=== PATIENT | female | born 1960 | race Caucasian/White ===

== ENCOUNTER 2016-09-13 22:46 | Inpatient (IN) | payer OTHER ==
[~2016-09-13] VITALS: Ht 165.1 cm; Wt 79.0 kg
[2016-09-13 22:46] VITALS: BP 162/99; PULSE 94; RESP 16; O2SAT 98
--- NOTE | 2016-09-13 22:56 | ED.REPORT ---
HPI-Extremity Problem Lower Date of Service Sep 13, 2016 ED Provider: Dr. 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 Air splint in place on arrival. Neurovascular status intact distal to injury Nursing Notes Stated Complaint: RIGHT ANKLE DEFORMITY Chief Complaint: Extremity Trauma Nursing Notes Reviewed: Yes Allergies: Coded Allergies: No Known Allergies (Unverified , 09/13/16) Scheduled Melatonin (Melatonin 1 mg Tablet) 1 Each Tablet 1 MG PO HS Metoprolol Succinate ER (Metoprolol Succinate ER) 25 Mg Tab.er.24h 25 MG PO DAILY Pravastatin (Pravastatin) 20 Mg Tablet 20 MG PO DAILY Miscellaneous Medications Losartan Potassium (Losartan Potassium) 25 Mg Tablet 25 MG PO [place]-3 Fatty Acids (Fish Oil) 300 Mg Capsule 300 MG PO General Time Seen by MD: 22:55 Chief Complaint Leg injury right Hx Obtained From: Patient Arrived By: Ambulance Onset Occurred: Just prior to arrival Symptom Duration: Since onset Caused by: Accidental Location: : Ankle right Quality: Painful Severity: Current: Moderate Recent Healthcare: No recent doctor visit, No recent hospitalization Similar Sx Previous: No Past Medical History Past Medical History HTN Past Surgical History denies Smoking History Unknown if Ever Smoker Social History Other Social History: Good social support, Local resident Ambulatory Status Independent Review of Systems Musculoskeletal: Reports: Joint pain (right ankle ), Joint swelling (right ankle ) Neurologic: Denies: Change LOC, Headache, Numbness Complete sys rev & neg: except as marked. Physical Exam Initial Vital Signs Vital Signs (First) Date Time Temp Pulse Resp B/P Pulse Ox O2 Delivery O2 Flow Rate FiO2 09/13/16 22:46 36.8 94 16 162/99 98 Room Air Initial VS: Reviewed Lower Extremity / Pelvis / MS: Vascular intact Right Ankle: Positive: Deformity present, Swelling present..., Tenderness present... obvious deformity and bruising distal sensation and vascularity intact General/Constitutional: Awake, Alert, Cooperative Skin: Atraumatic, Warm, Dry Neurologic: Oriented X3, Speech NL Head / Eyes: Atraumatic, Normocephalic, PERRL, EOMI Back: Atraumatic, Inspection NL, Non-tender Upper Extremity / MS: Atraumatic, Inspection NL, No deformity Interpretation & Diagnostics Lab Results Interpretation Result Diagram: 09/14/16 0035 09/14/16 0035 Test 09/14/16 00:35 White Blood Count 9.0th/mm3 (3.8-10.1) Red Blood Count 4.40mil/mm3 (3.90-5.20) Hemoglobin 14.5g/dL (12.0-15.6) Hematocrit 43.1% (35.0-46.0) Mean Corpuscular Volume 98.0fL (81-100) Mean Corpuscular Hemoglobin 33.0pg (27.0-35.0) Mean Corpuscular Hemoglobin Concent 33.6% (32.0-37.0) Red Cell Distribution Width 13.2% (12.3-15.4) Platelet Count 261bil/L (150-400) Neutrophils (%) (Auto) 63.7% (40-74) Lymphocytes (%) (Auto) 29.5% (14-46) Monocytes (%) (Auto) 5.3% (4-12) Eosinophils (%) (Auto) 1.0% (0-5) Basophils (%) (Auto) 0.3% (0-3) Prothrombin Time 9.8sec (8.1-12.5) Prothromb Time International Ratio 0.92ratio Activated Partial Thromboplast Time 28.5sec (22.8-33.0) Sodium Level 138mEq/L (134-144) Potassium Level 3.9mEq/L (3.5-5.2) Chloride Level 101mEq/L (97-108) Carbon Dioxide Level 19mmol/L (18-29) Blood Urea Nitrogen 15mg/dL (6-24) Creatinine 0.70mg/dL (0.57-1.00) Estimat Glomerular Filtration Rate 124mL/min (>59) Glucose Level 104mg/dL (60-99) Calcium Level 8.9mg/dL (8.5-10.1) Magnesium Level 2.0mg/dL (1.6-2.6) Total Bilirubin < 0.2mg/dL (0.0-1.2) Aspartate Amino Transf (AST/SGOT) 17U/L (0-50) Alanine Aminotransferase (ALT/SGPT) 25U/L (0-32) Alkaline Phosphatase 85U/L (25-150) Total Protein 7.2g/dL (6.4-8.4) Albumin 4.5g/dL (3.4-5.0) Lipase 24U/L (13-60) Hold Lee Top Tube Received (Received) Alcohols 89mg/dL (0-10) ECG Interpretation Time: 23:50 Interpreted by: ED physician Rhythm / Conduction: Tachycardia (rate 100) Re-Eval/Medical Decision Med Decision/Clinical Course 56-year-old with hypertension presents with a laterally displaced ankle fracture bimalleolar. This is reduced into a stirrup and posterior splint. Distal neurovascular. Post are intact. She feels unable to manage with crutches at home. She will require operative management. Admitted now to the hospitalist service with consultation orthopedics. Nothing by mouth status. Re-Evaluation/Progress #1: Time of Eval: 23:32 Re-Evaluation/Progress Note: Pt rechecked. Informed pt of x-ray results and need for surgery. Plan for IV, pain medication and admission. Re-Evaluation/Progress #2: Time of Eval: 00:04 Re-Evaluation/Progress Note: Pt rechecked. Reset pt's ankle and applied splint. Consultation : Referral / Consult Name: Luisa Gordon DO Consulted With: Hospitalist Call Returned at: 01:25 Reducing Machine Operator: Agrees with eval, Agrees with plan, Accepts admit Note: Case discussed. Dr. Gordon accepts admit. Counseled Regarding: Diagnosis, Lab results, Need for admission Discharge & Departure Impression: Primary Impression: Ankle fracture Encounter type: initial encounter Fracture type: closed Laterality: right Qualified Code: S82.891A - Other fracture of right lower leg, initial encounter for closed fracture Disposition: ADMITTED TO HOSPITAL Discharge Condition All VS Reviewed: Yes Condition: Stable Referrals: [facility] Scribe Attestation Portion of this note were transcribed by Moni Finch. I, Dr. Thompson, personally performed the history, physical exam, and medical decision-making: I reviewed and confirmed the accuracy for the information in the transcribed note. Signed by: david Lora, 09/14/16 0030 copies to: [facility] Homero Thompson MD Sep 13, 2016 22:55 Moni Finch Sep 13, 2016 23:00
[2016-09-13] MEDS ORDERED: 0.9% Sodium Chloride 1,000 ML IV ONE (23:33)
[2016-09-13] MEDS ORDERED: Ondansetron 2 mg/mL 2 mL Inj IVPUSH ONE ×2 (23:35→23:45)
[2016-09-13] MEDS ORDERED: HYDROmorphone 1 mg/mL Inj IVPUSH PRN (23:35)
[2016-09-13] MEDS ORDERED: HYDROmorphone 1 mg/mL Inj IVPUSH ONE (23:45)
[2016-09-14] VITALS (12 sets, daily range): BP systolic 114–160; BP diastolic 66–98; PULSE 74–114; RESP 8–22; O2SAT 93–97
[2016-09-14 00:47] LABS: BASOPHILS % (AUTO) 0.3 % (0-3); MONOCYTES % (AUTO) 5.3 % (4-12); NEUTROPHILS % (AUTO) 63.7 % (40-74); Platelet Count 261 bil/L (150-400)
[2016-09-14 01:12] LABS: INR 0.92 ratio
[2016-09-14 01:18] LABS: Lipase 24 U/L (13-60)
[2016-09-14] MEDS ORDERED: Polyethylene Glycol (PEG) 17 Gm Powder PO PRN ×2 (01:30→04:35)
[2016-09-14] MEDS ORDERED: Alum-Mag Hydrox-Simeth 30 mL Suspension PO PRN (01:30)
[2016-09-14] MEDS ORDERED: Ondansetron 2 mg/mL 2 mL Inj IVPUSH PRN ×2 (01:30→13:15)
--- NOTE | 2016-09-14 01:32 | PCM.HPMED ---
Subjective Date of Service Sep 14, 2016 Primary Provider: Admitting Physician: Luisa Gordon DO Primary Care Physician: [place] Attending Physician: Luisa Gordon DO Admit Status: From the Emergency Department Chief Complaint: ankle pain History of Present Illness: 56yoF with past medical history of HTN admitted following rolling of ankle resulting in bimalleolar fracture. Patient states she was walking on her property when she stepped into a hole and twisted her ankle. As this occurred she describes hearing a popping sound and a sudden onset of pain. Her came to her aide and was able to get her to the front of the property in a wheel [place]. EMS was called and patient brought into [facility]. Imaging completed following presentation consistent with bimalleolar fx. Ortho was consulted with plans to admit and possibly take to OR 09/14. Review of Systems: complete review of systems obtained. 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 [employer] Hx Alcohol Use: Yes Hx Substance Use: No Smoking Status: Current Every Day Smoker (trying to quit), Unknown if Ever Smoker Living Arrangement: with Family Additional Information 2-3 drinks per day with no history of dependence Exam Vital Signs Vital Sign - Last Date Time Temp Pulse Resp B/P Pulse Ox O2 Delivery O2 Flow Rate FiO2 09/13/16 22:46 36.8 94 16 162/99 98 Room Air Intake and Output 09/13/16 09/13/16 09/14/16 Cumulative From/Thru 15:00 23:00 07:00 09/13/16 22:46 - 09/13/16 23:58 Intake Total 1000 ml 1000 ml Balance 1000 ml 1000 ml Intake IV Total 1000 ml 1000 ml Exam General: Alert, Oriented X3, Cooperative, No acute Distress Eyes: PERRLA, Scleral Anicteric Mouth: Mouth Normal, Mucous Membranes Moist/[place] Neck: Supple, no Thyromegaly, trachea central. Chest & Lungs: Clear to auscultation & percussion, No adventitious breath sounds, no crackles, no wheeze Cardiovascular: Normal S1, Normal S2, No Murmurs/Rubs/Gallops, Regular Rate/ Rhythm, (No JVD, no peripheral edema) Pulses: Radial (present and equal), Dorsalis Pedi (present and equal) Abdomen: Soft, non-tender, no rebound, Non-distended, hypoactive bowel tones. Musculoskeletal: Unremarkable. Normal range of motion, no swollen or erythematous joints Extremities: no edema, no cyanosis, no clubbing, lower extremity in splint Skin: No rashes. Warm and dry, no erythematous areas Neurological: Grossly neurologically intact, Normal Speech, Sensation Intact Lymphatic: Lymph nodes Cervical and Axillary not palpable Lab and Diagnostics Result Diagram: 09/14/163409/14/1634 Assessment & Plan 56yoF with past medical history of HTN admitted following rolling of ankle resulting in bimalleolar fracture. Bimalleolar fracture, acute -admit to floor, no telemetry -NPO, mIVF -oxycodone 5mg PO q4HR PRN, hydromorphone 0.5 IV q4HR PRN breakthrough -bowel regimen -ortho consulted, recs appreciated HTN, chronic -continue losartan following surgery -continue metoprolol as per home schedule HLD, chronic -continue pravastatin when taking PO Patient is admitted under inpatient status and expected to be admitted for >2 midnights Pain Evaluation: Adequate Pain Control GI Prophylaxis: Not indicated VTE Prophylaxis: Sub-Q Heparin (Unfractionated) Resuscitation Status: CPR: Attempt Resuscitation Luisa Gordon DO Sep 14, 2016 01:32
[2016-09-14] MEDS: Lactated Ringer's 1,000 ML IV SCH ×3 (02:20→21:30)
[2016-09-14] MEDS ORDERED: MELA1TAB10 PO (02:44)
[2016-09-14] MEDS ORDERED: PRAV20TA2 PO (02:44)
[2016-09-14] MEDS ORDERED: OMEG300C3 PO (02:44)
[2016-09-14] MEDS ORDERED: METO25TA99 PO ×2 (02:44→09:41)
[2016-09-14] MEDS ORDERED: LOSA25TA21 PO (02:44)
--- NOTE | 2016-09-14 04:27 | NUR ---
Admit Patient admitted to Unit at 0200, able to shift self from ED gurney onto OSC bed. Patient denied pain at time of arrival. Requested use of BSC, unable to tolerate transfer, utilized bed noav. urine pale, clear and odorless. Right lower leg wrapped in daniel bandage from toe to knee. Oriented to room by NAC. Night hospitalist spoke with patient in room, awaiting new orders. Will continue plan of care.
[2016-09-14] MEDS ORDERED: HYDROmorphone 0.5 mg/0.5 mL iSecure Syringe IVPUSH PRN ×3 (04:35→09:00)
--- NOTE | 2016-09-14 07:55 | PCM.CONORT ---
Subjective Date of Surgery: Sep 14, 2016 Surgeon Admitting Provider:Luisa Gordon DO Attending Provider:Luisa Gordon DO Primary Care Physician:Nopcp Other Provider: Reason for Consultation: right ankle pain Allergy Allergies: Coded Allergies: No Known Allergies (Unverified , 09/13/16) Medications Losartan Potassium (Losartan Potassium) 25 Mg Tablet 25 MG PO (Reported) Last Taken: UNKNOWN on Unknown Date & Time Melatonin (Melatonin 1 mg Tablet ) 1 Each Tablet 1 MG PO HS (Reported) Last Taken: UNKNOWN on Unknown Date & Time Metoprolol Succinate ER ( Metoprolol Succinate ER) 25 Mg Tab.er.24h 25 MG PO DAILY (Reported) Last Taken: UNKNOWN on 09/13/16 0830 [place]-3 Fatty Acids (Fish Oil) 300 Mg Capsule 300 MG PO (Reported) Last Taken: UNKNOWN on Unknown Date & Time Pravastatin (Pravastatin) 20 Mg Tablet 20 MG PO DAILY (Reported) Last Taken: UNKNOWN on Unknown Date & Time History History of ENT Problems?: No HEENT History: Denies:: Abnormal Airway Cataracts Difficult Intubation Dysphagia Glaucoma Hearing Problem Sinus Problem TMJ Denture Type: None Teeth Condition: Within Normal Limits Hx of Heart Problems?: Yes Cardiovascular History: Positive for:: Hypertension Denies:: Congestive Heart Failure Hx of Respiratory Problem?: No Respiratory History: Denies:: Asthma COPD Chest Surgery Cough Dyspnea Emphysema Hemoptysis Oxygen Administration Pneumonia Pulmonary Embolism Tuberculosis Use of C-PAP Machine Use of Inhalers / NEBS Hx Neurologic Problems?: No Hx of GI Problems?: No Hx of Problems?: No Female Hx: Denies:: Currently Hx Musculoskeletal Problems?: No Other History/Comment Paulette Mehta is a 56-year-old female patient who presents to ER after slipping at home and twisting her ankle and a consult for orthopedic evaluation of their right ankle with ongoing symptoms was requested. The patient states that their pain is a sharp in nature and mild/moderate in severity localized to the medial and lateral aspect of the ankle without radiation. This has been progressing over the past few hours after twisting her ankle at home. Moreover, the pain is exacerbated by activities, especially with on movement. Rest seems to improve the symptoms.. Previous treatment has included: Splint in the ER with reduction.There is no reports numbness, tingling, or weakness to the affected distal lower extremity. The patient denies any fever, chills, nausea, vomiting, chest pain, shortness of breath, or calf tenderness. Work/hobbies/sports include: Smokes 10 cigarettes a day Hx of Psycho/Social Problems?: No Hx Surgeries?: No History Blood Transfusions: Positive for:: Accept Blood Products? 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 Hx Alcohol Use: YesAlcoholic Drinks Per Day: couple glasses a dayHx Substance Use: No Smoking Status: Current Every Day Smoker (trying to quit) Unknown if Ever Smoker Have You Smoked inLast 12 mo: YesApprox How Many Cigarettes/day: 10 Objective Exam Vital Signs & I/O Vital Sign- Last 8 Hours Date Time Temp Pulse Resp B/P Pulse Ox O2 Delivery O2 Flow Rate FiO2 09/14/16 06:45 36.6 86 18 144/96 97 Room Air 09/14/16 02:05 36.6 88 20 124/82 96 Room Air 09/14/16 01:36 74 18 114/75 93 Room Air Intake and Output- Last 8 Hour 09/14/16 Cumulative From/Thru 07:00 09/13/16 22:46 - 09/14/16 06:57 Intake Total 1000 ml 1000 ml Balance 1000 ml 1000 ml IV Total 1000 ml 1000 ml Lab & Micro Results Laboratory Tests Test 09/14/16 00:35 White Blood Count 9.0th/mm3 (3.8-10.1) Red Blood Count 4.40mil/mm3 (3.90-5.20) Hemoglobin 14.5g/dL (12.0-15.6) Hematocrit 43.1% (35.0-46.0) Mean Corpuscular Volume 98.0fL (81-100) Mean Corpuscular Hemoglobin 33.0pg (27.0-35.0) Mean Corpuscular Hemoglobin Concent 33.6% (32.0-37.0) Red Cell Distribution Width 13.2% (12.3-15.4) Platelet Count 261bil/L (150-400) Neutrophils (%) (Auto) 63.7% (40-74) Lymphocytes (%) (Auto) 29.5% (14-46) Monocytes (%) (Auto) 5.3% (4-12) Eosinophils (%) (Auto) 1.0% (0-5) Basophils (%) (Auto) 0.3% (0-3) Prothrombin Time 9.8sec (8.1-12.5) Prothromb Time International Ratio 0.92ratio Activated Partial Thromboplast Time 28.5sec (22.8-33.0) Sodium Level 138mEq/L (134-144) Potassium Level 3.9mEq/L (3.5-5.2) Chloride Level 101mEq/L (97-108) Carbon Dioxide Level 19mmol/L (18-29) Blood Urea Nitrogen 15mg/dL (6-24) Creatinine 0.70mg/dL (0.57-1.00) Estimat Glomerular Filtration Rate 124mL/min (>59) Glucose Level 104mg/dL (60-99) Calcium Level 8.9mg/dL (8.5-10.1) Magnesium Level 2.0mg/dL (1.6-2.6) Total Bilirubin < 0.2mg/dL (0.0-1.2) Aspartate Amino Transf (AST/SGOT) 17U/L (0-50) Alanine Aminotransferase (ALT/SGPT) 25U/L (0-32) Alkaline Phosphatase 85U/L (25-150) Total Protein 7.2g/dL (6.4-8.4) Albumin 4.5g/dL (3.4-5.0) Lipase 24U/L (13-60) Hold Lee Top Tube Received (Received) Alcohols 89mg/dL (0-10) Result Diagram: 09/14/163409/14/1634 Review of Systems: Constitutional: Negative, except as otherwise mentioned in the history above. Ophthalmologic: Negative, except as otherwise mentioned in the history above. Cardiovascular: Negative, except as otherwise mentioned in the history above. Respiratory: Negative, except as otherwise mentioned in the history above. Gastrointestinal: Negative, except as otherwise mentioned in the history above. Genitourinary: Negative, except as otherwise mentioned in the history above. Musculoskeletal: Negative, except as otherwise mentioned in the history above. Neurological: Negative, except as otherwise mentioned in the history above. Psychiatric: Negative, except as otherwise mentioned in the history above. Hematologic/Lymphatic: Negative, except as otherwise mentioned in the history above. Allergic/Immunologic: Negative, except as otherwise mentioned in the history above. H&P Surgical Exam Exam Musculoskeletal: CONST: WD,WN, NAD, A+OX3 OCULAR: EOMI, no conjunctivitis/icterus ENT: no deformities, scars or lesions CARDIAC: Pulse is regular. No cyanosis,clubbing,edema RESP: regular,unlabored MSK: normal light touch SPN/DPN/TN distributions. 5/5 DF/PF/Inv/Ev, 2+ DP Right Foot/Ankle - scars, + medial and lateral swelling, -erythema, no open wound TTP medial and lateral ankle ROM Strength/ Pain Deferred Signs Deferred syndesmotic squeeze:+ Melania's: - Additional Information Three-view x-rays of the right ankle demonstrates a Gutierrez C comminuted fibula fracture with medial malleolus fracture displacement and widening of the mortise H&P Preop Plan Impression Right ankle fracture Problems: Risks & Benefits * We have reviewed the risks and benefits as well as the alternatives to surgery. All questions were answered to the patient's satisfaction and a counseling note to that effect. The patient has provided informed consent. * I have counseled the patient regarding the deleterious effects that smoking during the perioperative period can have upon wound healing, infection rates, and the overall rate of complications. Plan Nonweightbearing right lower extremity Plan for OR today Nothing by mouth after midnight Plan for right ankle reduction internal fixation and all indicated procedures Patient will be discharged after surgery Medical optimization for surgery Continue medical management per primary Please keep the affected extremity elevated when possible. You may use ice as needed for comfort. All questions and concerns were addressed. Please feel free to call with any further questions, comments, and/or concerns. Informed consent obtained I discussed at length the risks, complications and implications of tobacco products and its effect on the treatment plan and outcomes. The patient has voiced understanding and has agreed to cease consumption of such products for a minimum of the duration of the entire course of treatment. Homero Freire MD Sep 14, 2016 07:55
--- NOTE | 2016-09-14 08:52 | DRSVH ---
PROCEDURE: X-RAY RIGHT ANKLE, MINIMUM THREE VIEWS ([id number]) INDICATIONS: rolled ankle, heard a pop, swelling TECHNIQUE: 3 views of the ankle were acquired. COMPARISON: None. FINDINGS: Bones: No fractures or dislocations. Ankle mortise is normally aligned. No suspicious bony lesions . There is a comminuted fracture involving the distal right fibula shaft above the level of the late ral malleolus with possible intra-articular extension. Posterior displacement of the distal fracture fragment is present by approximately 5 mm. There is also mild lateral angulation of the distal frac ture fragment. Widening of the distal tibiofibular syndesmosis is noted, measuring up to approximate ly 8 mm. There is a fracture of the medial malleolus that is obliquely oriented. The distal tibia i s displaced medially with respect to the talus and the medial and lateral malleoli by up to 8 mm. Ir regularity along the posterior margin of the lateral malleolus may represent an additional fracture. No definite additional fractures are evident. Soft tissues: Extensive soft tissue edema about the ankle is present with an associated ankle effusio n. No unexpected radiopaque foreign bodies are evident. IMPRESSION: 1. There is at least a bimalleolar ankle fracture. There may be involvement of the posterior malleo missael. There is involvement of the distal tibiofibular syndesmosis. 2. Soft tissue swelling of the ankle with an associated effusion. Dictated by: Darci Robert M.D. on 09/14/2016 at 8:48 Approved by: Darci Robert M.D. on 09/14/2016 at 8:51
--- NOTE | 2016-09-14 09:09 | DRSVH ---
PROCEDURE: X-RAY CHEST ONE VIEW, PORTABLE ([id number]) INDICATIONS: preop orif rt ankle TECHNIQUE: One view of the chest was acquired. COMPARISON: None. FINDINGS: Surgical changes and devices: None. Lungs and pleura: No pleural effusions or pneumothorax. Lungs are clear. Mediastinum: Mediastinal contours appear normal. Heart size is normal. Bones and chest wall: No suspicious bony lesions. Overlying soft tissues appear unremarkable. IMPRESSION: No acute cardiopulmonary disease. Dictated by: Dale CARABALLO Interpreted: Jaquelin aVsquez MD on 09/14/2016 at 9:09 Transcribed by: IRIS on 09/14/2016 at 9:09 Approved by: Jaquelin Vasquez M.D. on 09/14/2016 at 10:14
[2016-09-14] MEDS ORDERED: LOSA1TAB69 PO (09:41)
[2016-09-14] MEDS ORDERED: PRAV40TA PO (09:41)
[2016-09-14] MEDS ORDERED: MELA10TA7 PO (09:43)
[2016-09-14] MEDS: HYDROmorphone 0.5 mg/0.5 mL iSecure Syringe IVPUSH PRN (11:22)
[2016-09-14] MEDS ORDERED: Propofol 10,000 mCg/mL 20 mL Inj ONE (12:49)
[2016-09-14] MEDS ORDERED: Dexamethasone 4 mg/mL Inj ONE (12:49)
[2016-09-14] MEDS ORDERED: fentaNYL-PF 50 mCg/mL 2 mL Inj ONE (12:49)
[2016-09-14] MEDS ORDERED: Ondansetron 2 mg/mL 2 mL Inj ONE (12:49)
[2016-09-14] MEDS ORDERED: HYDROmorphone 2 mg/mL Inj ONE (12:49)
--- NOTE | 2016-09-14 13:14 | PCM.HPANE ---
Patient Data Surgeon Admitting Provider:Luisa Gordon DO Attending Provider:Luisa Gordon DO Primary Care Physician:Nopcp Other Provider: Reason for Visit Bimalleolar Fx, Dislocation Of Ankle Ht/WT & BMI Height (Feet): 5 Height (Inches): 5.00 Weight (Kilograms): 79.000 Body Mass Index 29.02 Allergies Coded Allergies: No Known Allergies (Unverified , 09/13/16) Past Anesthesia History Anesthesia History: Denies:: Abnormal Airway, Anesthesia Reactions, Difficult Intubation, Fam Anesthesia Reaction, Fam Malignant Hypertherm, Malignant Hyperthermia Diabetes History Hx Diabetes?: No MRSA MRSA: No Medications Reported Medications Melatonin 10 Mg Tab.thovpi99 Mg PO HS 09/14/16 Pravastatin 40 Mg Psgfmq87 Mg PO HS #30 09/14/16 Metoprolol Succinate ER 25 Mg Tab.er.24h50 Mg PO Evening Ref 0 09/14/16 Losartan/HCTZ 50-12.5 mg 1 Each Dyanqy59 Tab PO DAILY #30 09/14/16 [place]-3 Fatty Acids (Fish Oil)300 Mg Khtauxp624 Mg PO DAILY 09/14/16 Metoprolol Succinate ER 25 Mg Tab.er.24h25 Mg PO DAILY Ref 0 09/14/16 Discontinued Reported Medications Melatonin (Melatonin 1 mg Tablet)1 Each Tablet1 Mg PO HS Ref 0 09/14/16 Pravastatin 20 Mg Amsmxj75 Mg PO DAILY Ref 0 09/14/16 Losartan Potassium 25 Mg Phskmd30 Mg PO 09/14/16 History History of ENT Problems?: No HEENT History: Denies:: Abnormal Airway Cataracts Difficult Intubation Dysphagia Glaucoma Hearing Problem Sinus Problem TMJ Denture Type: None Teeth Condition: Within Normal Limits Hx of Heart Problems?: Yes Cardiovascular History: Positive for:: Hypertension Denies:: AICD Abdominal Aortic Aneurism Atrial Fibrillation Cardiac Surgery Chest Pain Congestive Heart Failure Coronary Artery Disease Edema Heart Murmur Irregular Heartbeat Pacemaker Peripheral Vascular Rheumatic Fever Thrombophlebitis Valvular Heart Disease Hx of Respiratory Problem?: No Respiratory History: Denies:: Asthma COPD Chest Surgery Cough Dyspnea Emphysema Hemoptysis Oxygen Administration Pneumonia Pulmonary Embolism Tuberculosis Use of C-PAP Machine Use of Inhalers / NEBS Hx Neurologic Problems?: No Neurological History: Denies:: Alzheimer's Disease CVA Dementia Dizziness Headaches Multiple Sclerosis Parkinson's Disease Peripheral Neuropathy Seizures TIA Hx of GI Problems?: No Gastrointestinal History: Denies:: Cirrhosis Diverticulitis Gall Bladder Disease Gastroesphageal Reflux Gastrointestinal Bleeding Heartburn Hepatitis Hiatal Hernia Liver Disease Rectal Bleeding Hx of Problems?: No Genitourinary History: Denies:: HX of Hemodialysis Kidney Stones Urinary Tract Infection HX of Peritoneal Dialysis: No Female Hx: Denies:: Currently Endometriosis Pelvic Inflammatory Problems with Breasts? Skin History: Denies:: History Skin Disorders? Pressure Ulcers Hx Musculoskeletal Problems?: No Musculoskeletal History: Denies:: Back Injury Degenerative Joint Fibromyalgia Joint Replacement Musculoskeletal Trauma Myasthenia Gravis Osteoarthritis Rheumatoid Arthritis Systemic Lupus Hx of Psycho/Social Problems?: No Psycho Social History: Denies:: Anxiety Bipolar Disorder Hx Depression Suicide Attempt Hx Surgeries?: No Hx Any Other Health Problems?: No Other History: Denies:: Cancer Endocrine Disease Hospitalization Thyroid Disease History Blood Transfusions: Positive for:: Accept Blood Products? 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 Hx Alcohol Use: YesAlcoholic Drinks Per Day: couple glasses a dayHx Substance Use: No Smoking Status: Current Every Day Smoker (trying to quit) Unknown if Ever Smoker Have You Smoked inLast 12 mo: YesApprox How Many Cigarettes/day: 10 Stop/Bang Treated for Sleep Apnea?: No Do You Have a CPAP Machine?: No S-Snoring: Do You Snore Loudly: No T-Tired: feel tired, fatigued: No O-Obsered: Observed not breath: No P-Blood Pressure: treated: Yes B- Body Mass Index > 35 kg/m2: No A- Age over 50: Yes N- Neck Large Circumference: No G- Gender Male: No LETICIA Total Score: 1 Risk Assessment Category Category 1A: Patient has history of documented sleep apnea, and HAS NOT received any narcotic, sedative or anesthesia administration during this stay. Category 1B: Patient has history of documented sleep apnea, and HAS received any narcotic , sedative or anesthesia administration during this stay Category 2: Patient has SUSPECTED Obstructive Sleep Apnea, and HAS received any narcotic , sedative or anesthesia administration during this stay. Category 3: Patient has SUSPECTED Obstructive Sleep Apnea and HAS NOT received narcotic, sedative or anesthesia administration during this stay. Category 4: Outpatient in Procedural Areas with known sleep apnea or who screen positive for High Risk via the STOP/BANG questionnaire. Exam Exam Vital Signs Vital Signs Date Time Temp Pulse Resp B/P Pulse Ox O2 Delivery O2 Flow Rate FiO2 09/14/16 10:52 36.7 88 20 120/85 97 Room Air 09/14/16 06:45 36.6 86 18 144/96 97 Room Air General Appearance: Alert, Oriented X3, Cooperative, Mild Distress (right ankle pain) HEENT/AIRWAY: MP 2, Neck Movement Lungs: Clear to Auscultation, Normal Air Movement Heart: Exam Unremarkable, Regular Rate/Rhythm, No Murmurs/Rubs/Gallops Meds/Labs/Diagnostics Admission Meds Current Medications Sodium Chloride (Normal Saline) 1,000 ml @ 0 mls/hr Q0M ONCE IV Last administered on 09/13/16 23:58; Start 09/13/16 at 23:33; Stop 09/13/16 at 23:36 ; Status DC Ondansetron HCl (Zofran Inj) 8 mg ONCE ONCE IVPUSH Last administered on 23:58; Start 09/13/16 at 23:35; Stop 09/13/16 at 23:36; Status DC Hydromorphone HCl 1 mg 1 mg ONCE ONCE IVPUSH Last administered on 09/13/16 23 :58; Start 09/13/16 at 23:45; Stop 09/13/16 at 23:46; Status DC Lactated Ringer's (Lr) 1,000 ml @ 100 mls/hr Q10H IV Last administered on 09/14 02:20; Start 09/14/16 at 01:30 Labs Test 09/14/16 00:35 White Blood Count 9.0th/mm3 (3.8-10.1) Red Blood Count 4.40mil/mm3 (3.90-5.20) Hemoglobin 14.5g/dL (12.0-15.6) Hematocrit 43.1% (35.0-46.0) Mean Corpuscular Volume 98.0fL (81-100) Mean Corpuscular Hemoglobin 33.0pg (27.0-35.0) Mean Corpuscular Hemoglobin Concent 33.6% (32.0-37.0) Red Cell Distribution Width 13.2% (12.3-15.4) Platelet Count 261bil/L (150-400) Neutrophils (%) (Auto) 63.7% (40-74) Lymphocytes (%) (Auto) 29.5% (14-46) Monocytes (%) (Auto) 5.3% (4-12) Eosinophils (%) (Auto) 1.0% (0-5) Basophils (%) (Auto) 0.3% (0-3) Prothrombin Time 9.8sec (8.1-12.5) Prothromb Time International Ratio 0.92ratio Activated Partial Thromboplast Time 28.5sec (22.8-33.0) Sodium Level 138mEq/L (134-144) Potassium Level 3.9mEq/L (3.5-5.2) Chloride Level 101mEq/L (97-108) Carbon Dioxide Level 19mmol/L (18-29) Blood Urea Nitrogen 15mg/dL (6-24) Creatinine 0.70mg/dL (0.57-1.00) Estimat Glomerular Filtration Rate 124mL/min (>59) Glucose Level 104mg/dL (60-99) Calcium Level 8.9mg/dL (8.5-10.1) Magnesium Level 2.0mg/dL (1.6-2.6) Total Bilirubin < 0.2mg/dL (0.0-1.2) Aspartate Amino Transf (AST/SGOT) 17U/L (0-50) Alanine Aminotransferase (ALT/SGPT) 25U/L (0-32) Alkaline Phosphatase 85U/L (25-150) Total Protein 7.2g/dL (6.4-8.4) Albumin 4.5g/dL (3.4-5.0) Lipase 24U/L (13-60) Hold Lee Top Tube Received (Received) Alcohols 89mg/dL (0-10) Plan Impression Patient chart reviewed, patient interviewed and anesthestic plan with risks, benefits, and alternatives discussed, and informed consent obtained. NPO per Anesth. Guidelines: Yes ASA Physical Status: ASA2 Mod Systemic Disease Anesthetic Plan: GA Bene/Risks/Altern/Consents: Yes HP Complete Prior to Induction: Yes Krish Gilbert MD Sep 14, 2016 11:12
[2016-09-14] MEDS ORDERED: fentaNYL-PF 50 mCg/mL 2 mL Inj IVPUSH PRN (13:15)
[2016-09-14] MEDS ORDERED: HYDROmorphone 1 mg/mL Inj IVPUSH PRN (13:15)
[2016-09-14] MEDS ORDERED: Lactated Ringer's 1,000 ML IV SCH (13:15)
[2016-09-14] MEDS ORDERED: EPHEDrine Sulfate 50 mg/mL Inj IVPUSH PRN (13:15)
[2016-09-14] MEDS ORDERED: Phenylephrine 10,000 mCg/mL Inj IVPUSH PRN (13:15)
[2016-09-14] MEDS ORDERED: Lactated Ringer's 500 ML IV PRN (13:15)
[2016-09-14] MEDS ORDERED: Atropine 0.4 mg/mL Inj IVPUSH PRN (13:15)
[2016-09-14] MEDS ORDERED: Labetalol 5 mg/mL 4 mL Inj IV PRN (13:15)
[2016-09-14] MEDS ORDERED: MetoCLOpramide 5 mg/mL 2 mL Inj IVPUSH PRN (13:15)
--- NOTE | 2016-09-14 13:15 | NUR ---
Social Work: Brief Note DAP: EMR reviewed. SW attempted to meet with pt to conduct initial screening but pt was in OR. Pt is a 56 y/o female admitted for bimalleolar fx, dislocation of ankle per H&P. Pt's insurance is [employer]. Pt does not have a PCP listed. Pt's NOK is spouse Venkat Sandoval, . SW will continue to follow for needs once pt returns from OR. MYLES Rizvi
[2016-09-14] MEDS ORDERED: Ropivacaine-PF 0.5% 30 mL Inj INFILTRATE ONE (13:17)
[2016-09-14] MEDS ORDERED: Ketorolac 15 mg/mL Inj IVPUSH ONE (15:25)
--- NOTE | 2016-09-14 15:36 | PCM.ORTHOP ---
Orthopedic Operative Report Date of Service: Sep 14, 2016 Pre Operative Diagnosis Right ankle bimalleolar fracture with syndesmosis disruption Post Operative Diagnosis Same Procedure Right ankle open reduction internal fixation, medial and lateral malleolus fixation, with syndesmosis fixation Surgeon Surgeon: Homero Freire Assistants: Jerome Soares Indication for Procedure Right ankle bimalleolar fracture with syndesmosis disruption Findings Per dictation Details of Procedure Indications: Paulette Mehta is a 56-year-old female status post right bimalleolar ankle fracture. A clear explanation was given to the patient regarding the condition present, and the available conservative and surgical options. It was emphasized that the risks and benefits of surgery include but are not limited to infection, wound healing problems, damage to adjacent structures such as nerves, blood vessels and tendons, intermodal dispatcher disability and pain, arthritis, hypersensitivity, deep vein thrombosis, pulmonary embolism, broken hardware, failure of surgery, need for further procedures at time of surgery or later, cast related problems, loss of limb or life. The patient was given an explanation and the patient voiced understanding of what to expect after the procedure or surgery, the limitations in activities of daily living, the likely duration for post operative recovery and the instructions that are to be followed. At the end the patient was invited to seek clarification or ask further questions but there were none. The patient voiced understanding of the entire consultation. Description of Operation: The patient was brought to the operating room. Patient name and surgical site were confirmed. Preoperative antibiotics were given. The patient was placed supine on the operating table. General anesthesia was administered. A well padded tourniquet was placed on the leg. The leg was then prepped and draped in the usual sterile fashion. The leg was exsanguinated and the tourniquet was inflated. The lateral malleolus was addressed first. An incision was made over the lateral ankle. Subcutaneous dissection was performed down to the lateral malleolus. Care was taken to avoid injury to the superficial peroneal nerve. The fracture was cleaned of debris and interposed soft tissue. The fracture was reduced to anatomic alignment using reduction clamps and preliminary fixation techniques. There was comminution and the bone was severely osteopenic and not amenable to lag screw fixation. Fluoroscopy was used to confirm satisfactory reduction. A distal fibular locking plate was then placed and secured in position using 2.7 mm fully threaded cortical screws proximally with 2.7 locking screws distally. Solid bony purchase was achieved with a combination of locking and nonlocking screws. The medial side was addressed next. The medial malleolus was amenable to screw fixation to achieve anatomic reduction and secure fixation. The fracture was reduced to anatomic alignment using preliminary fixation techniques and a 1.5 mm K-wire. Fluoroscopy was used to confirm satisfactory reduction. 2 - 4.0 cannulated parrallel screws were inserted. Final radiographs confirmed anatomic reduction of the fracture, samaritan of the ankle mortise, and adequate placement of hardware. The ankle joint was stressed and the syndesmosis was found to be unstable and a tightrope was used to tighten the joint with the ankle in dorsiflexion. The tourniquet was deflated. Hemostasis was obtained with electrocautery. The wounds were thoroughly irrigated with bulb irrigation. The wounds were then closed in layers. The incisions were cleaned and dressed with Adaptic, gauze, and soft roll. A well padded plaster splint was then placed and wrapped with an Navdeep bandage. Estimated blood loss was 15 cc. There were no immediate complications. The patient was transferred to the PACU in stable condition. I was present for the entire procedure. MEDICAL DIR SURGEON: During the operation, the services of physician certified surgical first assistant were medically indicated and necessary to provide exposure of the operative site for the surgical procedure and to maintain the limb in a proper position to carry out the operation safely and efficiently. Without the qualified senior office assistant being present, it would have extended the operative procedure and made the procedure technically more difficult to perform. Specimens Obtained: none Please keep dressing clean dry and intact. Do not remove dressing until follow- up in clinic. Do not weight-bear on the affected extremity. You may use crutches or a walker/scooter to help with ambulation on your unaffected extremity. You will follow up in clinic in 10-14 days for suture removal, and placement of new Steri-Strips. You will follow-up with me in clinic with new x- rays at this time. You will follow-up with me at 6 weeks postop and may start weightbearing as tolerated when radiographic healing noted which may take an additional 4-6 weeks. Please keep the affected extremity elevated when possible. You may use ice and/or heat as needed for comfort (preferably ice during the first 48-72 hours). Please feel free to call with any further questions, comments, and/or concerns. I discussed at length the risks, complications and implications of tobacco products and its effect on the treatment plan and outcomes. The patient has voiced understanding and has agreed to cease consumption of such products for a minimum of the duration of the entire course of treatment. Grafts, Implants: Implants-See Implant Record Complications There were no periprocedural complications identified. Condition Stable Anesthetic Administered: GA Catheters: None Output, Estimated Blood Loss: 15 Blood Admin during surgery: No Surgical Cast or Splint: Well-padded Short Leg Splint Surgical Specimen Removed: No Specimen sent to Pathology: No copies to: Homero Freire MD, Christopher L MD Sep 14, 2016 15:36
--- NOTE | 2016-09-14 15:56 | PCM.ANEP1 ---
Post Anesthesia PACU Phase 1 Assessment Vital Signs Vital Signs Date Time Temp Pulse Resp B/P Pulse Ox O2 Delivery O2 Flow Rate FiO2 09/14/16 15:53 105 8 134/92 97 Simple Mask 8 09/14/16 15:44 36.4 114 8 147/80 96 Simple Mask 8 09/14/16 10:52 36.7 88 20 120/85 97 Room Air Anesthetic Administered: GA Level of Alertness: Awake, talking LAU's with Equal Strength: Yes Pain: Yes (nurse is aware) Pain Scale Score: 4 Nausea or Vomiting: No CV Function & Hydration Stable: No Airway Device: Oxygen Delivery: Simple Mask Lungs: Clear to Auscultation, Normal Air Movement Dermatome Level: Full Sensation PACU Phase 2 Assessment Complications: No Follow up Care: N/A Patient Instructions Provided: N/A Krish Gilbert MD Sep 14, 2016 15:56
[2016-09-14] MEDS ORDERED: Heparin 5,000 Unit/mL Inj SUBQ SCH (16:30)
--- NOTE | 2016-09-14 17:14 | NUR ---
Post op note- Patient returned to [facility] via bed. Drowsy, but alert and oriented. Denies pain at this time. Right leg in cast covered with EVITA wrap. Foot is warm with good capillary refill. Patient able to wiggle her toes. Tolerating liquids.
[2016-09-14] MEDS: HYDROcodone-APAP 5-325 mg Tablet PO PRN (21:05)
[2016-09-14] MEDS ORDERED: CeFAZolin Inj 2 GM in IV Premix 1 EACH IV ONE (23:00)
--- NOTE | 2016-09-14 23:29 | PCM.PNMED ---
Subjective Date of Service Sep 14, 2016 Subjective 56 yo female fell last night after she twisted her ankle, suffered bimaleolar fracture, no x-ray? She is scheduled for OR today. HTN and HLD. States she has been on antihypertensive for a year. She tripped on uneven backyard ground while wearing flip flips. Denies recent fevers, chills,infection. Endorsing dry mouth. Exam Vital Signs Vital Sign - Last Date Time Temp Pulse Resp B/P Pulse Ox O2 Delivery O2 Flow Rate FiO2 09/14/16 02:05 36.6 88 20 124/82 96 Room Air Intake and Output 09/13/16 09/13/16 09/14/16 Cumulative From/Thru 15:00 23:00 07:00 09/13/16 22:46 - 09/14/16 02:12 Intake Total 1000 ml 1000 ml Balance 1000 ml 1000 ml Intake IV Total 1000 ml 1000 ml Exam General: Alert, Oriented X3, Cooperative, No acute Distress Eyes: PERRLA, Scleral Anicteric Mouth: Mouth Normal, Mucous Membranes Moist/[place] Neck: Supple, no Thyromegaly, trachea central. Chest & Lungs: Clear to auscultation & percussion, No adventitious breath sounds, no crackles, no wheeze Cardiovascular: Normal S1, Normal S2, No Murmurs/Rubs/Gallops, Regular Rate/ Rhythm, (No JVD, no peripheral edema) Pulses: Radial (present and equal), Dorsalis Pedi (present and equal) Abdomen: Soft, non-tender, no rebound, Non-distended, hypoactive bowel tones. Musculoskeletal: Elevated Right LE, wrapped all the way up to the mid thigh Extremities: no edema, no cyanosis, no clubbing, lower extremity in splint Skin: No rashes. Warm and dry, no erythematous areas Neurological: Grossly neurologically intact, Normal Speech, Sensation Intact IVs and Medications IV Fluids nss 100 cc/hr Medications Reviewed: Medications were reviewed in detail Lab and Diagnostics Result Diagram: 09/14/163409/14/1634 X-Rays, CTs and MRIs PROCEDURE: X-RAY RIGHT ANKLE, MINIMUM THREE VIEWS ([id number]) INDICATIONS: rolled ankle, heard a pop, swelling IMPRESSION: 1. There is at least a bimalleolar ankle fracture. There may be involvement of the posterior malleolus. There is involvement of the distal tibiofibular syndesmosis. 2. Soft tissue swelling of the ankle with an associated effusion. Dictated by: Darci Robert M.D. on 09/14/2016 at 8:48 Approved by: Darci Robert M.D. on 09/14/2016 at 8:51 PROCEDURE: X-RAY CHEST ONE VIEW, PORTABLE ([id number]) INDICATIONS: preop orif rt ankle IMPRESSION: No acute cardiopulmonary disease. Dictated by: Dale Nguyen RRA Interpreted: Jaquelin Vasquez MD on 09/14/2016 at 9:09 Transcribed by: IRIS on 09/14/2016 at 9:09 Approved by: Jaquelin Vasquez M.D. on 09/14/2016 at 10:14 Assessment & Plan 56yoF with past medical history of HTN admitted following rolling of ankle resulting in bimalleolar fracture. Bimalleolar fracture, acute -- Three-view x-rays of the right ankle demonstrates a Gutierrez C comminuted fibula fracture with medial malleolus fracture displacement and widening of the mortise -admit to floor, no telemetry -NPO, IVF -oxycodone 5mg PO q4HR PRN, hydromorphone 1 mg IV q3HR PRN breakthrough ( increased as she was not having enough pain relief with 0.5 mg) -bowel regimen -ortho consulted, recs appreciated: She will be taken to OR for open reduction, internal fixation 09/[address] Freire -- Hold heparin SQ LEg Pain: due to bimaleolar fx ---oxycodone 5mg PO q4HR PRN, hydromorphone 1 mg IV q3HR PRN breakthrough ( increased as she was not having enough pain relief with 0.5 mg) HTN, chronic -- Hold losartan -continue losartan following surgery -continue metoprolol as per home schedule HLD, chronic -continue pravastatin when taking PO Patient is admitted under inpatient status and expected to be admitted for >2 midnights Pain Evaluation: Adequate Pain Control GI Prophylaxis: Not indicated VTE Prophylaxis: Sub-Q Heparin (Unfractionated) Resuscitation Status: CPR: Attempt Resuscitation Time spent 20 min Maryana Rodrigues DO Sep 14, 2016 05:46
[2016-09-15 00:30] VITALS: BP 109/72; PULSE 75; RESP 16; O2SAT 96
[2016-09-15] MEDS: HYDROcodone-APAP 5-325 mg Tablet PO PRN ×4 (01:46→14:39)
[2016-09-15] MEDS: Lactated Ringer's 1,000 ML IV SCH ×2 (02:25→07:30)
--- NOTE | 2016-09-15 04:02 | NUR ---
PAIN Patient reports pain is increasing, relieved with vicodin. Affected leg with good sensation and warm toes. Will continue to monitor for CMS and pain.
[2016-09-15 04:48] VITALS: BP 120/75; PULSE 78; RESP 18; O2SAT 98
[2016-09-15 06:45] LABS: Mean Corpuscular Hemoglobin 32.1 pg (27.0-35.0); Mean Corpuscular Volume 101.6 fL (81-100)
[2016-09-15] MEDS: HYDROmorphone 0.5 mg/0.5 mL iSecure Syringe IVPUSH PRN (08:04)
--- NOTE | 2016-09-15 11:08 | NUR ---
Evaluation completed. Please go to "Notes" then click on "Assessments and Notes" (bottom left corner of screen). Then select appropriate discipline tab on top of screen.
[2016-09-15 12:45] VITALS: BP 151/92; PULSE 71; RESP 18; O2SAT 98
[2016-09-15] MEDS ORDERED: MeTOProlol XL 25 mg ER24 Tablet PO SCH (13:35)
[2016-09-15] MEDS ORDERED: OXYC5TAB72 PO (13:47)
[2016-09-15] MEDS ORDERED: POLY17PO6 PO (13:47)
--- NOTE | 2016-09-15 13:50 | PCM.DIMED ---
Discharge Instructions Date of Service Sep 15, 2016 Dates of Hospitalization Sep 14, 2016 at 01:02 Discharge Diagnosis Discharge Diagnosis Bimaleolar fracture, internal fixation, HTN Diet Discharge Diet: Heart Healthy Activity Discharge Activity: Other (Limited until seen by Ortho) Call your provider Call your provider for: Fever or Chills, Shortness of breath, Bleeding, Chest pain, Vomitting, Excessive diarrhea, Weakness (unilateral), Other Patient Instructions Patient Instructions Please keep dressing clean dry and intact. Do not remove dressing until follow- up in clinic. Do not weight-bear on the affected extremity. You may use crutches or a walker/scooter to help with ambulation on your unaffected extremity. You will follow up in clinic in 10-14 days for suture removal, and placement of new Steri-Strips. You will follow-up with Dr. Freire in clinic with new x-rays at this time. You will follow-up with Dr. Freire at 6 weeks postop and may start weightbearing as tolerated when radiographic healing noted which may take an additional 4-6 weeks. Please keep the affected extremity elevated when possible. You may use ice and/or heat as needed for comfort (preferably ice during the first 48-72 hours). Please feel free to call with any further questions, comments, and/or concerns. Please take miralax as needed for constipation. If are taking the pain medication, do not drive. Follow-up plan You will follow up in orthopedic clinic in 10-14 days for suture removal, and placement of new Steri-Strips. You will follow-up with Dr. Freire in clinic with new x-rays at this time. You will follow-up with Dr. Freire at 6 weeks postop and may start weightbearing as tolerated when radiographic healing noted which may take an additional 4-6 weeks. Please keep the affected extremity elevated when possible. You may use ice and/or heat as needed for comfort (preferably ice during the first 48-72 hours). Please feel free to call Dr. Freire with any further questions, comments, and/or concerns. F/U with PCP in 1-2 weeks Maryana Rodrigues DO Sep 15, 2016 13:50
--- NOTE | 2016-09-15 14:04 | NUR ---
Social Work- Readiness for Discharge/ Readiness for Discharge Data: EMR reviewed. Pt is on day 1 of hospitalization for bimalleolar fracture, dislocation of ankle per H&P. Pt is POD 1. Pt has [employer]. Pt is going to discharge later today. SW met with pt at bedside regarding discharge planning, SW role explained. Pt alert and oriented x3. Pt resides in [place] with her spouse where he will be assisting her at home. Prior to her fracture pt was independent. SW acknowledges MD order to assist pt with PCP follow up at [facility] residency clinic. Pt confirms that she has a PCP Yoel Osborne at the [facility] in [place]. PT has seen pt, pt was able to ambulate 40 feet with fww. 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 SW advised pt on [employer] companies to obtain walker. Pt agreeable. SW provided DPOA paperwork at bedside. Pt to discharge home with to transport via POV and assist with needs at home. No additional SW needs identified, SW will continue to follow. Assessment: Pt who will receive assistance from her at home. Plan: Ortho is ordering fww for pt. Pt to discharge home with to transport via POV and assist with needs at home. No additional SW needs identified, SW will continue to follow. Nevaeh Gramajo, AUTOMATIC BOW MAKER MACHINE TENDER
--- NOTE | 2016-09-15 15:32 | NUR ---
Discharge note- Right leg cast and dressing dry and intact. Incision pain controlled with oral pain meds. Ortho checks WNL. Patient up with physical therapy. Discharged to home with and personal belongings.
--- NOTE | 2016-09-15 15:54 | NUR ---
Social Work- Discharge Data: EMR reviewed. Pt discharged today. [employer] [facility] not [facility] with [facility] so pt will be purchasing her walker through [employer]. Pt to discharge home with to transport via POV and assist with needs at home. No additional SW needs identified. Assessment: Pt who will receive assistance from her at home. Plan: Fww to be obtained through [facility]. Pt to discharge home with to transport via POV and assist with needs at home. No additional SW needs identified. Nevaeh Gramajo MSW
--- NOTE | 2016-09-15 15:59 | PCM.PNORTH ---
Subjective Date of Service: Sep 15, 2016 Visit Information: Reason for Visit Bimalleolar Fx, Dislocation Of Ankle Surgery/Surgery Date Post-Op Day # Date of Admission: Sep 14, 2016 at 01:02 Hospital Day # Subjective Status post day #1 right ankle ORIF with syndesmotic fixation. Patient doing well, states she is a little sore as is ready to go home and will have her there to help her. States that her pain is controlled with the medication and she is doing well. She would really like a walker as she feels more stable using this to get around. Postop General: No Complaints, No Shortness of Breath, No Chest Pain Objective Exam Objective Patient is alert and oriented 3. Answering questions appropriately. Patient is sitting up in the bed and not in acute distress today. Dressing and splint are clean dry and intact. Calf is soft and nontender. Sensation and pulses intact, patient able to wiggle toes. Vital Signs and I/O Vital Sign - Last Date Time Temp Pulse Resp B/P Pulse Ox O2 Delivery O2 Flow Rate FiO2 09/15/16 14:59 Room Air 09/15/16 12:45 36.9 71 18 151/92 98 09/14/16 16:55 2.00 Intake and Output 09/14/16 09/14/16 09/15/16 Cumulative From/Thru 15:00 23:00 07:00 09/13/16 22:46 - 09/15/16 06:14 Intake Total 800 ml 723 ml 2284 ml 4807 ml Output Total 830 ml 15 ml 1120 ml 1965 ml Balance -30 ml 708 ml 1164 ml 2842 ml Intake Oral 0 ml 1000 ml 1000 ml IV Total 800 ml 723 ml 1284 ml 3807 ml Output Urine Total 800 ml 1120 ml 1920 ml Estimated Blood Loss 30 ml 15 ml 45 ml # Voids 1 1 # Bowel Movements 0 0 0 Lab & Micro Results Laboratory Tests Test 09/15/16 06:00 White Blood Count 9.3th/mm3 (3.8-10.1) Red Blood Count 3.77mil/mm3 (3.90-5.20) Hemoglobin 12.1g/dL (12.0-15.6) Hematocrit 38.3% (35.0-46.0) Mean Corpuscular Volume 101.6fL (81-100) Mean Corpuscular Hemoglobin 32.1pg (27.0-35.0) Mean Corpuscular Hemoglobin Concent 31.6% (32.0-37.0) Red Cell Distribution Width 13.5% (12.3-15.4) Platelet Count 217bil/L (150-400) Sodium Level 137mEq/L (134-144) Potassium Level 4.1mEq/L (3.5-5.2) Chloride Level 102mEq/L (97-108) Carbon Dioxide Level 24mmol/L (18-29) Blood Urea Nitrogen 14mg/dL (6-24) Creatinine 0.81mg/dL (0.57-1.00) Estimat Glomerular Filtration Rate 105mL/min (>59) Glucose Level 112mg/dL (60-99) Calcium Level 8.7mg/dL (8.5-10.1) Result Diagram: 09/15/16 0600 09/15/16 0600 Catheters: None Assessment & Plan Impression Status post day #1 right ankle ORIF with syndesmotic fixation via a tight rope. Patient doing well, ready to be discharged to home. Problems: Plan Patient will remain nonweightbearing for 6 weeks. Patient will use a walker, crutches, or scooter for 6 weeks. Patient will be discharged with Percocet to use for pain control, prescription in chart. Keep the splint clean dry and intact for 2 weeks, we will plan to see you back to place her in a cast at that time. Follow-up in 2 weeks and [address] Homero Freire for x-rays, conversion to a cast and follow-up to possibly begin weightbearing at 6 weeks. VTE Prophylaxis: Sub-Q Heparin (Unfractionated) Resuscitation Status: CPR: Attempt Resuscitation Jerome Soares PA-C Sep 15, 2016 15:59
--- NOTE | 2016-09-16 22:57 | PCM.DC.MED ---
Discharge Summary Date of Service Sep 15, 2016 Dates of Hospitalization Date of Hospital Admission Sep 14, 2016 at 01:02 Date of Discharge: Sep 15, 2016 Providers: Admitting Physician: Luisa Gordon DO Primary Care Physician: Nopcp Attending Physician: Luisa Gordon DO Diagnosis at Time of Discharge Diagnosis at Time of Discharge Bimaleolar fracture, internal fixation, HTN Consultations Ortho, PT/OT Procedures XRay, CTs & MRIs PROCEDURE: X-RAY RIGHT ANKLE, MINIMUM THREE VIEWS ([id number]) INDICATIONS: rolled ankle, heard a pop, swelling IMPRESSION: 1. There is at least a bimalleolar ankle fracture. There may be involvement of the posterior malleolus. There is involvement of the distal tibiofibular syndesmosis. 2. Soft tissue swelling of the ankle with an associated effusion. Dictated by: Darci Robert M.D. on 09/14/2016 at 8:48 Approved by: Darci Robert M.D. on 09/14/2016 at 8:51 PROCEDURE: X-RAY CHEST ONE VIEW, PORTABLE ([id number]) INDICATIONS: preop orif rt ankle IMPRESSION: No acute cardiopulmonary disease. Dictated by: Dale Nguyen [facility] Interpreted: Jaquelin Vasquez MD on 09/14/2016 at 9:09 Transcribed by: IRIS on 09/14/2016 at 9:09 Approved by: Jaquelin Vasquez M.D. on 09/14/2016 at 10:14 Invasive Procedures 09/14/16 Bimaleolar fx internal fixation by Dr. Mondragon Brief History 56yoF with past medical history of HTN admitted following rolling of ankle resulting in bimalleolar fracture. Patient states she was walking on her property when she stepped into a hole and twisted her ankle. As this occurred she describes hearing a popping sound and a sudden onset of pain. Her came to her aide and was able to get her to the front of the property in a wheel southern ute. EMS was called and patient brought into [facility]. Imaging completed following presentation consistent with bimalleolar fx. Ortho was consulted with plans to admit and possibly take to OR 09/14. Hospital Course 56yoF with past medical history of HTN admitted following rolling of ankle resulting in bimalleolar fracture. Bimalleolar fracture, acute -- Three-view x-rays of the right ankle demonstrates a Gutierrez C comminuted fibula fracture with medial malleolus fracture displacement and widening of the mortise -admit to floor, no telemetry -oxycodone 5mg PO q4HR PRN, hydromorphone 1 mg IV q3HR PRN breakthrough ( increased as she was not having enough pain relief with 0.5 mg) -bowel regimen -ortho consulted, recs appreciated: She was taken to OR for open reduction, internal fixation 09/[address] Freire -She was given pain meds and a wheeled walker by Ortho LEg Pain: due to bimaleolar fx -She was given pain meds and a wheeled walker by Ortho HTN, chronic -- Start home meds upon discharge. They were being phased in here at [facility]. HLD, chronic -continue pravastatin when taking PO Patient is admitted under inpatient status and expected to be admitted for >2 midnights Exam Vital Signs (Last) Date Time Temp Pulse Resp B/P Pulse Ox O2 Delivery O2 Flow Rate FiO2 09/15/16 12:45 36.9 71 18 151/92 98 Room Air 09/14/16 16:55 2.00 Exam General: Alert, Oriented X3, Cooperative, No acute Distress Eyes: PERRLA, Scleral Anicteric Mouth: Mouth Normal, Mucous Membranes Moist/Register Neck: Supple, no Thyromegaly, trachea central. Chest & Lungs: Clear to auscultation & percussion, No adventitious breath sounds, no crackles, no wheeze Cardiovascular: Normal S1, Normal S2, No Murmurs/Rubs/Gallops, Regular Rate/ Rhythm, (No JVD, no peripheral edema) Abdomen: Soft, non-tender, no rebound, Non-distended, hypoactive bowel tones. Extremities: no edema, no cyanosis, no clubbing, lower extremity in splint Skin: No rashes. Warm and dry, no erythematous areas Neurological: Grossly neurologically intact, Normal Speech, Sensation Intact Test 09/14/16 00:35 09/15/16 06:00 Neutrophils (%) (Auto) 63.7% (40-74) Lymphocytes (%) (Auto) 29.5% (14-46) Monocytes (%) (Auto) 5.3% (4-12) Eosinophils (%) (Auto) 1.0% (0-5) Basophils (%) (Auto) 0.3% (0-3) Prothrombin Time 9.8sec (8.1-12.5) Prothromb Time International Ratio 0.92ratio Activated Partial Thromboplast Time 28.5sec (22.8-33.0) Magnesium Level 2.0mg/dL (1.6-2.6) Total Bilirubin < 0.2mg/dL (0.0-1.2) Aspartate Amino Transf (AST/SGOT) 17U/L (0-50) Alanine Aminotransferase (ALT/SGPT) 25U/L (0-32) Alkaline Phosphatase 85U/L (25-150) Total Protein 7.2g/dL (6.4-8.4) Albumin 4.5g/dL (3.4-5.0) Lipase 24U/L (13-60) Hold Lee Top Tube Received (Received) Alcohols 89mg/dL (0-10) White Blood Count 9.3th/mm3 (3.8-10.1) Red Blood Count 3.77mil/mm3 (3.90-5.20) Hemoglobin 12.1g/dL (12.0-15.6) Hematocrit 38.3% (35.0-46.0) Mean Corpuscular Volume 101.6fL (81-100) Mean Corpuscular Hemoglobin 32.1pg (27.0-35.0) Mean Corpuscular Hemoglobin Concent 31.6% (32.0-37.0) Red Cell Distribution Width 13.5% (12.3-15.4) Platelet Count 217bil/L (150-400) Sodium Level 137mEq/L (134-144) Potassium Level 4.1mEq/L (3.5-5.2) Chloride Level 102mEq/L (97-108) Carbon Dioxide Level 24mmol/L (18-29) Blood Urea Nitrogen 14mg/dL (6-24) Creatinine 0.81mg/dL (0.57-1.00) Estimat Glomerular Filtration Rate 105mL/min (>59) Glucose Level 112mg/dL (60-99) Calcium Level 8.7mg/dL (8.5-10.1) Discharge Medications Discharge Medications Losartan/HCTZ 50-12.5 mg (Losartan/HCTZ 50-12.5 mg) 1 Each Tablet 10 TAB PO DAILY (Reported) Melatonin (Melatonin) 10 Mg Tab.rapdis 10 MG PO HS (Reported) Metoprolol Succinate ER (Metoprolol Succinate ER) 25 Mg Tab.er.24h 25 MG PO DAILY (Reported) Metoprolol Succinate ER (Metoprolol Succinate ER) 25 Mg Tab.er.24h 50 MG PO Evening (Reported) [place]arrar-3 Fatty Acids (Fish Oil) 300 Mg Capsule 300 MG PO DAILY (Reported) Pravastatin (Pravastatin) 40 Mg Tablet 40 MG PO HS (Reported) As needed Polyethylene Glycol 3350 (Miralax) 17 Gm Powd.pack 17 GM PO DAILY PRN PRN For Constipation Prescribed by: MARYANA MARSH DO oxyCODONE (oxyCODONE) 5 Mg Tablet 5 MG PO Q4H PRN PRN For Moderate Pain Prescribed by: MARYANA MARSH DO Followup Plan Follow-up plan You will follow up in orthopedic clinic in 10-14 days for suture removal, and placement of new Steri-Strips. You will follow-up with Dr. Freire in clinic with new x-rays at this time. You will follow-up with Dr. Freire at 6 weeks postop and may start weightbearing as tolerated when radiographic healing noted which may take an additional 4-6 weeks. Please keep the affected extremity elevated when possible. You may use ice and/or heat as needed for comfort (preferably ice during the first 48-72 hours). Please feel free to call Dr. Freire with any further questions, comments, and/or concerns. F/U with PCP in 1-2 weeks Discharge Diet: Heart Healthy Discharge Activity: Other (Limited until seen by Ortho) Patient Instructions Please keep dressing clean dry and intact. Do not remove dressing until follow- up in clinic. Do not weight-bear on the affected extremity. You may use crutches or a walker/scooter to help with ambulation on your unaffected extremity. You will follow up in clinic in 10-14 days for suture removal, and placement of new Steri-Strips. You will follow-up with Dr. Freire in clinic with new x-rays at this time. You will follow-up with Dr. Sheu at 6 weeks postop and may start weightbearing as tolerated when radiographic healing noted which may take an additional 4-6 weeks. Please keep the affected extremity elevated when possible. You may use ice and/or heat as needed for comfort (preferably ice during the first 48-72 hours). Please feel free to call with any further questions, comments, and/or concerns. Please take miralax as needed for constipation. If are taking the pain medication, do not drive. Time spent > 30 min Maryana Marsh DO Sep 15, 2016 13:50
== END 2016-09-15 15:25 | disposition home or self-care (01) | DRG 494 ==
LOC: SED 22:46 → OSC 09-14 01:02
PROVIDERS: ADMIT Internal Medicine; ATTEND Internal Medicine
PROC: 0QSJ04Z Reposition Right Fibula with Internal Fixation Device, Open Approach (ICD-10-PCS; 2016-09-14)
PROC: 0QSG04Z Reposition Right Tibia with Internal Fixation Device, Open Approach (ICD-10-PCS; principal; 2016-09-14 13:00)
DX: S82.841A Displaced bimalleolar fracture of right lower leg, initial encounter for closed fracture (principal); Y93.01 Activity, walking, marching and hiking; Y92.017 Garden or yard in single-family (private) house as the place of occurrence of the external cause; I10 Essential (primary) hypertension; F17.210 Nicotine dependence, cigarettes, uncomplicated; E78.5 Hyperlipidemia, unspecified; W18.42XA Slipping, tripping and stumbling without falling due to stepping into hole or opening, initial encounter